=== PATIENT | male | born 1995 | race African-American/Black ===

== ENCOUNTER 2016-09-19 19:21 | Emergency (ER) | payer OTHER ==
[2016-09-19 20:00] VITALS: BP 138/69
--- NOTE | 2016-09-19 20:59 | UC ---
Complaint Male HPI - HPI Summary HPI Summary: Rai is requesting STD testing went to see PCP- urine test was done but he wants all STD's tested for denies penile lesions and discharge uses condoms 100 % of the time - History of Current Complaint Chief Complaint: [facility]CGU Stated Complaint: PERSONAL Time Seen by Provider: 09/19/16 20:50 Hx Obtained From: Patient - Allergies/Home Medications Allergies/Adverse Reactions: Allergies Allergy/AdvReac Type Severity Reaction Status Date / Time Sulfa Antibiotics Allergy Unknown Verified 03/16/15 15:15 Reaction Details Sulfamethoxazole Allergy Unknown Verified 03/16/15 15:15 w/Trimethoprim Reaction [From Bactrim] Details PMH/Surg Hx/FS Hx/Imm Hx Previously Healthy: Yes Respiratory History Of: Reports: Asthma - Seasonal Allergies - Surgical History Surgical History: None - Family History Known Family History: Positive: None Negative: Cardiac Disease, Hypertension, Diabetes - Social History Occupation: Employed Full-time Lives: With Family Alcohol Use: Occasionally Substance Use Type: Marijuana Smoking Status (MU): Never Smoked Tobacco - Immunization History Most Recent Influenza Vaccination: never Most Recent Tetanus Shot: up to date per patient as of 09/19/16 Review of Systems Constitutional: Negative Skin: Negative Eyes: Negative ENT: Negative Respiratory: Negative Cardiovascular: Negative Gastrointestinal: Negative Genitourinary: Negative Motor: Negative Neurovascular: Negative Musculoskeletal: Negative Neurological: Negative Psychological: Negative All Other Systems Reviewed And Are Negative: Yes Physical Exam Triage Information Reviewed: Yes Appearance: No Pain Distress, Well-Nourished Vital Signs: Initial Vital Signs Temp 99.2 F 09/19/16 19:53 Pulse 72 09/19/16 19:53 Resp 16 09/19/16 19:53 BP 138/69 09/19/16 19:53 Pulse Ox 100 09/19/16 19:53 Vital Signs Reviewed: Yes Eyes: Positive: Conjunctiva Clear ENT: Positive: Pharynx normal, TMs normal Neck: Positive: No Lymphadenopathy Respiratory: Positive: Lungs clear, Normal breath sounds, No respiratory distress, No accessory muscle use Cardiovascular: Positive: RRR, No Murmur, Pulses Normal Abdomen Description: Positive: Nontender, Soft Bowel Sounds: Positive: Present Musculoskeletal: Positive: No Edema Neurological Exam: Normal Psychological Exam: Normal Skin Exam: Normal Complaint Male Course/Dx - Differential Dx/Diagnosis Provider Diagnoses: testing for sexually transmitted disease Discharge - Discharge Plan Condition: Stable Disposition: HOME Patient Education Materials: Sexually Transmitted Diseases (ED), Condom Use (ED ), Safe Sex (ED) Additional Instructions: Please review your discharge instructions. If your symptoms do not improve please call your primary care provider or return to urgent care. Please call [phone] for your test results in 3 days
[2016-09-21 11:35] LABS: Syphilis Index < 0.1 Index
[2016-09-23 17:07] LABS: Herpes Simplex 1&2 IgM IFA Negative (Negative)
== END 2016-09-19 21:16 | disposition home or self-care (01) ==
LOC: UCEAST 19:21
DX: Z11.3 Encounter for screening for infections with a predominantly sexual mode of transmission (principal); J45.909 Unspecified asthma, uncomplicated; Z88.2 Allergy status to sulfonamides
CPT/HCPCS: 36415; 86592; 86694; 86703; 86707; 86803; 87389; 99211; G0463; G0475

== ENCOUNTER 2022-10-01 12:05 | Observation (INO) ==
[2022-10-01] MEDS ORDERED: Ondansetron 4 mg VIAL 2 MG/ML 2 ml VIAL IV ONE (13:12)
[2022-10-01] MEDS ORDERED: Lactated Ringers 1000 ml BAG 1,000 ML IV ONE ×2 (13:12→17:59)
[2022-10-01 13:55] LABS: Hematocrit 42.5 % (38-53); Hemoglobin 13.5 g/dL (13.2-16.3); Mean Corpuscular Hemoglobin 22.6 pg (27-33); Mean Corpuscular Hgb Conc 31.7 g/dL (31-36); Mean Corpuscular Volume 71.3 fL (80-97); Mean Platelet Volume 6.8 fL (7.5-11.2); Platelet Count 266 10^3/uL (150-450); Red Blood Count 5.96 10^6/uL (4.06-5.63); Red Cell Distribution Width 15.2 % (12-17)
[2022-10-01 14:13] LABS: RBC Morphology Normal (Normal)
[2022-10-01 14:14] LABS: ABS Eosinophils 0.1 10^3/ul (0.0-0.5); ABS Lymphocytes 1.6 10^3/ul (1.0-4.8); ABS Monocytes 0.5 10^3/ul (0.0-1.1)
[2022-10-01 14:19] LABS: ABS Eosinophils 0.1 10^3/uL (0.0-0.5); ABS Lymphocytes 1.1 10^3/uL (1.0-4.8); ABS Monocytes 0.7 10^3/uL (0.0-1.1); ABS Neutrophils 0.8 10^3/ul (1.5-7.6); ABS Neutrophils 1.1 10^3/uL (1.5-7.6); Eosinophil % 3.1 %; Lymphocyte % 37.8 %; Nucleated Red Blood Cells % 0.1 /100 WBC (0.0-0.4)
[2022-10-01 14:24] LABS: Albumin 4.5 g/dL (3.2-5.2); Albumin/Globulin Ratio 1.9 (1-3); C Reactive Protein 15.95 mg/L (<8.01); Calcium 9.1 mg/dL (8.6-10.3); Creatinine, Serum 1.01 mg/dL (0.67-1.17); Globulin 2.4 g/dL (2-4); Total Bilirubin 0.4 mg/dL (0.2-1.0); Total Protein 6.9 g/dL (6.4-8.9); eGFR CKD-EPI 105.2 (>60)
[2022-10-01] MEDS ORDERED: Albuterol HFA INHALER 8 gm MDI INH PRN (18:22)
[2022-10-01 23:55] LABS: Urine Appearance Cloudy; Urine Bilirubin Negative (Negative); Urine Blood Negative (Negative); Urine Color Yellow; Urine Glucose Negative (Negative); Urine Ketones Negative (Negative); Urine Nitrite Negative (Negative); Urine Protein 1+(30 mg/dL) (Negative); Urine Urobilinogen Negative (Negative)
[2022-10-01 23:58] LABS: Urine Bacteria 1+ (Absent); Urine Red Blood Cell Trace(0-2/hpf) (Absent); Urine White Blood Cell Trace(0-5/hpf) (Absent)
[2022-10-02 06:19] LABS: Hematocrit 38.9 % (38-53); Hemoglobin 12.2 g/dL (13.2-16.3); Mean Corpuscular Hemoglobin 22.2 pg (27-33); Mean Corpuscular Hgb Conc 31.5 g/dL (31-36); Mean Corpuscular Volume 70.7 fL (80-97); Mean Platelet Volume 6.9 fL (7.5-11.2); Platelet Count 252 10^3/uL (150-450); Red Cell Distribution Width 14.7 % (12-17); White Blood Count 3.2 10^3/uL (3.6-10.2)
[2022-10-02 07:04] LABS: HIV 4th Generation Nonreactive (Nonreactive)
[2022-10-02 08:52] LABS: Microcytosis 2+
[2022-10-02 08:54] LABS: ABS Eosinophils 0.2 10^3/uL (0.0-0.5); ABS Lymphocytes 1.7 10^3/uL (1.0-4.8); ABS Monocytes 0.6 10^3/uL (0.0-1.1); ABS Neutrophils 0.7 10^3/uL (1.5-7.6); ABS Nucleated RBC 0.01 10^3/ul; Eosinophil % 5.2 %; Nucleated Red Blood Cells % 0.2 /100 WBC (0.0-0.4)
[2022-10-02 13:51] LABS: Corrected Retic Count 1.1 % (0.5-1.5); Immature Retic Fraction 0.37; RBC Retic Count 5.79 10^6/ul (4.06-5.63)
[2022-10-02 14:48] LABS: Folate 8.14 ng/mL (5.90-24.80)
[2022-10-03 06:55] LABS: ABS Eosinophils 0.2 10^3/uL (0.0-0.5); ABS Lymphocytes 1.9 10^3/uL (1.0-4.8); ABS Monocytes 0.5 10^3/uL (0.0-1.1); ABS Nucleated RBC 0.01 10^3/ul; Eosinophil % 5.9 %; Hematocrit 40.3 % (38-53); Hemoglobin 12.5 g/dL (13.2-16.3); Lymphocyte % 53.3 %; Mean Corpuscular Hemoglobin 22.4 pg (27-33); Mean Corpuscular Volume 72.1 fL (80-97); Mean Platelet Volume 6.8 fL (7.5-11.2); Nucleated Red Blood Cells % 0.2 /100 WBC (0.0-0.4); Platelet Count 278 10^3/uL (150-450); Red Blood Count 5.59 10^6/uL (4.06-5.63); Red Cell Distribution Width 14.9 % (12-17); White Blood Count 3.6 10^3/uL (3.6-10.2)
[2022-10-03 07:06] LABS: Calcium 9.1 mg/dL (8.6-10.3); Creatinine, Serum 1.07 mg/dL (0.67-1.17); Magnesium 1.9 mg/dL (1.9-2.7); Potassium 4.4 mmol/L (3.5-5.0); eGFR CKD-EPI 98.1 (>60)
[2022-10-03 10:32] VITALS: BP 131/74
[2022-10-03 11:27] LABS: EBV Capsid Ag IgG Ab Positive (Negative); EBV Capsid Ag IgM Ab Negative (Negative); Epstein-Barr Nuclear Antigen Positive (Negative)
[2022-10-05 17:58] LABS: Anaplasma phagocytophilum Negative (Negative); B. miyamotoi PCR, B Negative (Negative); Babesia divergens/MO-1 Negative (Negative); Babesia ducani Negative (Negative); Ehrlichia chaffeensis Negative (Negative); Ehrlichia ewingii/canis Negative (Negative); Ehrlichia muris eauclairensis Negative (Negative)
== END 2022-10-03 12:23 | disposition home or self-care (01) ==
LOC: ED 12:05 → EDHOLD 12:05 → SUATTDRO 17:13 → SSU 22:14
PROVIDERS: ADMIT Internal Medicine; ATTEND Internal Medicine